=== PATIENT | female | born 2000 | race Caucasian/White ===

== ENCOUNTER 2018-05-20 18:10 | Emergency (ER) | payer OTHER ==
[~2018-05-20] VITALS: Ht 162.6 cm; Wt 74.5 kg
[~2018-05-20 18:10] MED LIST: NOHOMEMEDS
[2018-05-20 19:05] LABS: BASOPHIL (%) 0.2 % (0-1); EOSINOPHIL COUNT 0.1 K/uL (0-0.3); HEMATOCRIT 36.6 % (36.0-46.0); IMMATURE GRANULOCYTE (%) 0.3 % (0.0-0.7); LYMPHOCYTE (%) 24.6 % (15-42); LYMPHOCYTE COUNT 2.3 K/uL (1.0-2.8); MCH 31.3 PG (29.0-34.0); MCHC 35.5 G/DL (30.0-36.0); MONOCYTE (%) 6.2 % (3-12); MONOCYTE COUNT 0.6 K/uL (0-0.8); NEUTROPHIL (%) 67.7 % (45-76); NEUTROPHIL COUNT 6.2 K/uL (1.8-6.4); PLATELET COUNT 264 K/uL (156-360); RBC DIS.WIDTH-CV 12.1 % (11.8-14.6); RBC DIS.WIDTH-SD 39.2 % (39-53); RED BLOOD COUNT 4.16 M/uL (3.80-5.20); WHITE BLOOD COUNT 9.1 K/uL (4.1-10.2)
[2018-05-20 19:13] LABS: ALBUMIN 4.4 g/dL (3.2-4.8); CHLORIDE 105 mEq/L (99-109); POTASSIUM 4.4 mEq/L (3.7-5.4); SODIUM 140 mEq/L (136-147)
[2018-05-20 19:16] LABS: GLUCOSE 86 mg/dL (70-99); TOTAL PROTEIN 7.6 g/dL (6.4-8.3)
[2018-05-20 19:18] LABS: TOTAL BILIRUBIN 0.4 mg/dL (0.0-1.0)
[2018-05-20 19:19] LABS: ALKALINE PHOSPHATASE 74 IU/L (3-129); CREATININE 0.8 mg/dL (0.6-1.3); GFR ESTIMATE (CALCULATED) > 59 mL/min/
[2018-05-20 19:20] LABS: UREA NITROGEN (BUN) 12 mg/dL (9-23)
[2018-05-20 19:21] LABS: AST (GOT) 14 IU/L (2-34)
[2018-05-20 19:22] LABS: ALT (GPT) 12 IU/L (3-49)
[2018-05-20 19:28] LABS: QUANTITATIVE HCG < 4.0 MIU/ML
[2018-05-20] MEDS ORDERED: VALTREX1000 MG PO (20:59)
[2018-05-20] MEDS ORDERED: PREDNISONE20 MG PO (20:59)
[2018-05-20] MEDS ORDERED: ARTIFICIAL TEA3.5 G1 LEFT EYE (21:19)
[2018-05-20] MEDS ORDERED: ARTIFICIAL TEAR1510 BOTH EYES (21:19)
[2018-05-20 21:26] VITALS: BP 103/64
[2018-05-21 12:36] LABS: LYME DISEASE SEROLOGY SCREEN NEGATIVE (NEGATIVE)
== END 2018-05-20 21:31 | disposition home or self-care (01) ==
LOC: EME 18:10
PROVIDERS: Emergency Medicine
DX: G51.0 Bell's palsy (principal); R51 Headache
CPT/HCPCS: 70450; 80053; 81003; 83735; 84702; 85025; 86618; 93005; 99281; 99285